=== PATIENT | male | born 1955 | race Caucasian/White ===

== ENCOUNTER 2018-08-18 05:35 | Observation (INO) ==
--- NOTE | 2018-08-18 05:43 | Emergency Department Note ---
Disposition Clinical Impression: Dizziness Chest pain Qualifiers: Chest pain type: unspecified Qualified Code(s): R07.9 - Chest pain, unspecified Disposition: Still a Patient Condition: Good Instructions: Chest Pain (ED) Referrals: Zack Brown DO [Primary Care Provider] - Forms: ED Satisfaction Letter Time of Disposition: 07:03 General Adult HPI - General Chief complaint: ED Chest Pain Stated complaint: CP/SHYANNE Time Seen by Provider: 08/18/18 05:43 Source: patient Mode of arrival: ambulatory Limitations: no limitations Nursing Notes Reviewed: Yes Vital Signs Reviewed: Yes - History of Present Illness HPI Narrative: Patient is a 63-year-old male with a past medical history of CABG presents to the emergency department for evaluation of dizziness and chest pain. Patient states that he has been dizzy over the past 24 hours. He describes the dizziness as the room spinning associated with nausea. He states his symptoms have been constant with no relief is finding it difficult to ambulate secondary to the dizziness. The chest pain he noticed first thing this morning, states is like a tightness that is a 2 out of 10 and substernal. No associated symptoms. States it does not feel intense when he had a heart attack. Denies focal neurologic deficits Pain Scale: 5 - Related Data Allergies Allergy/AdvReac Type Severity Reaction Status Date / Time No Known Allergies Allergy Verified 08/18/18 05:42 All systems ED: reviewed and negative except as stated. Review of Systems: As Per HPI Constitutional: Denies: fever, chills, weakness Cardiovascular: Reports: chest pain. Denies: palpitations, dyspnea on exertion, edema, syncope, paroxysmal nocturnal dyspnea Respiratory: Denies: dyspnea Gastrointestinal: Reports: nausea. Denies: abdominal pain, vomiting Musculoskeletal: Denies: neck pain Neurological: Reports: vertigo. Denies: headache, weakness, numbness, paresthesias, confusion, abnormal gait Past Medical History - Past Medical History Attestation: Yes The following information was validated with the patient. Medical history: Reports: hyperlipidemia, hypertension Psychiatric history: Reports: no psych history - Social History Smoking Status: Never smoker Smokeless Tobacco Status: No Alcohol use: Reports: none Drug use: Reports: none Physical Exam CONSTITUTIONAL: Well-appearing; well-nourished; A&O X 3, in no apparent distress HEAD: Normocephalic; atraumatic EYES: PERRL, no scleral icterus NOSE: The nose is normal in appearance without rhinorrhea NECK: No JVD or distended neck veins RESP: Normal chest excursion with respiration; breath sounds clear and equal bilaterally; no wheezes, rhonchi, or rales CARD: Regular rhythm, without murmurs, rub or gallop ABD: Non-distended; non-tender, soft, without rigidity, rebound or guarding,no pulsatile mass CHEST: No pain with palpation SKIN: Normal for age and race; warm and dry without diaphoresis ; no apparent lesions EXTREMITIES: Pulses are 2 plus and equal times 4 extremities, no peripheral edema or calf muscle pain NEUROLOGICAL: Patient is alert and oriented times three. Cranial nerves III- XII are intact. Patient has unilateral nystagmus to the left that is fatigable. Sensory and motor functions are intact. Strength is 5/5 for flexion and extension in all 4 extremities. Patellar DTRS are equal and intact. Finger to nose testing is equal and normal bilaterally. - General Limitations: no limitations General appearance: alert Course Vital Signs Temperature 98.2 F 08/18/18 05:39 Pulse Rate 68 08/18/18 05:39 Respiratory Rate 20 08/18/18 05:39 Blood Pressure 137/84 08/18/18 05:39 O2 Sat by Pulse Oximetry 96 08/18/18 05:39 Temperature 98.2 F 08/18/18 05:39 Pulse Rate 70 08/18/18 06:39 Respiratory Rate 20 08/18/18 06:39 Blood Pressure 91/69 08/18/18 06:39 O2 Sat by Pulse Oximetry 94 08/18/18 06:39 Oxygen Delivery Oxygen Delivery Room Air Medical Decision Making - Medical Records Medical records reviewed: Yes I reviewed the patient's medical records. - Lab Data Result diagrams: 08/18/18 06:13 08/18/18 06:13 Lab Results 08/18/18 08/18/18 Range/Units 06:13 06:13 WBC 6.6 (4.3-11.1) K/mcL RBC 5.21 (4.19-5.50) M/mcL Hgb 15.2 (12.9-16.9) g/dL Hct 46.7 (37.5-50.1) % MCV 89.6 (83.0-100.0) fL MCH 29.2 (28.0-33.3) pg MCHC 32.5 (31.6-35.5) g/dL RDW 13.3 (11.5-14.5) % Plt Count 186 (140-400) K/mcL MPV 11.8 (9.4-12.4) fL Immature Gran % 0.2 (0-4) % Seg Neutrophils % 49.9 % Lymphocytes % 37.6 % Monocytes % 8.4 % Eosinophils % 3.3 % Basophils % 0.6 % Neutrophils # 3.3 (1.6-8.9) K/mcL Lymphocytes # 2.5 (0.6-4.6) K/mcL Monocytes # 0.6 (0.0-1.3) K/mcL Eosinophils # 0.2 (0.0-0.6) K/mcL Basophils # 0.0 (0.0-0.2) K/mcL Sodium 138 (136-145) mEq/L Potassium 4.3 (3.5-5.1) mEq/L Chloride 107 (98-107) mEq/L Carbon Dioxide 20 L (23-29) mEq/L BUN 15 (8-23) mg/dL Creatinine 0.97 (0.70-1.30) mg/dL Est GFR ( Amer) > 60 (> 60) Est GFR (Non-Af Amer) > 60 (> 60) BUN/Creatinine Ratio 15 (6-26) Glucose 138 H (70-105) mg/dL Calculated Osmolality 289 (280-300) Calcium 9.0 (8.6-10.3) mg/dL Troponin I 0.03 (< 0.04) ng/mL - EKG Data EKG #1 EKG attestation: Yes I reviewed and interpreted this EKG. EKG results narrative: EKG done at 5:41 shows sinus rhythm at a rate of 67 bpm. Normal axis. Intervals within normal limits. Patient has ST depressions in lead 1 and lead aVL that appeared to be new when compared to old EKG. Patient also has nearly 1 mm elevation in III. These are new changes when compared to the EKG done on January 302014 Attestation Statement - Attestation Attestation: Dr. Beltran note: Patient was seen in conjunction with resident Dr. Ritter. Please see his charting for complete documentation. I spent [id number] time with the patient and I agree with the patient's treatment and disposition. Vague off balance and dizzy sensation constant for about the last 24 hours. No pain. No focal neurological signs or symptoms. No clear vertiginous or come positional component. No chest pain at this time. Baseline EKG is abnormal vague neck many years. Chronic dyspnea on exertion. No diaphoresis. Bypass done many years ago. Troponin and CT scan unremarkable as time. We will be admitted due to his persistent symptoms. Patient without symptoms at time of admission at 7 AM when he was accepted by the hospitalist DR Luna
[2018-08-18] MEDS ORDERED: Aspirin 81 MG TAB.CHEW PO ONE (06:00)
[2018-08-18] MEDS ORDERED: Ondansetron 4 MG/2 ML VIAL IVP ONE (06:00)
[2018-08-18] MEDS ORDERED: Nitroglycerin 0.4 MG TAB.SUBL SL ONE (06:00)
[2018-08-18 06:25] LABS: Basophils % 0.6 %; Eosinophils # 0.2 K/mcL (0.0-0.6); Eosinophils % 3.3 %; Hematocrit 46.7 % (37.5-50.1); Hemoglobin 15.2 g/dL (12.9-16.9); Immature Granulocytes % 0.2 % (0-4); Lymphocytes # 2.5 K/mcL (0.6-4.6); Lymphocytes % 37.6 %; Mean Corpuscular HGB Conc 32.5 g/dL (31.6-35.5); Mean Corpuscular Hemoglobin 29.2 pg (28.0-33.3); Mean Corpuscular Volume 89.6 fL (83.0-100.0); Mean Platelet Volume 11.8 fL (9.4-12.4); Monocytes # 0.6 K/mcL (0.0-1.3); Monocytes % 8.4 %; Neutrophils # 3.3 K/mcL (1.6-8.9); Platelet Count 186 K/mcL (140-400); Red Blood Count 5.21 M/mcL (4.19-5.50); Red Cell Distribution Width 13.3 % (11.5-14.5); Segmented Neutrophils % 49.9 %
[2018-08-18 06:46] LABS: Troponin I 0.03 ng/mL (< 0.04)
[2018-08-18 06:51] LABS: BUN/Creatinine Ratio 15 (6-26); Blood Urea Nitrogen 15 mg/dL (8-23); Carbon Dioxide 20 mEq/L (23-29); Chloride 107 mEq/L (98-107); Glucose 138 mg/dL (70-105); Osmolality,Calculated 289 (280-300); Potassium 4.3 mEq/L (3.5-5.1); Sodium 138 mEq/L (136-145); eGFR For Non-African Americans > 60 (> 60)
[2018-08-18] MEDS ORDERED: Metoclopramide 10 MG/2 ML VIAL IVP ONE (07:38)
[2018-08-18] MEDS ORDERED: Naloxone 0.4 MG/ML INJ IVP PRN (07:38)
--- NOTE | 2018-08-18 07:54 | Internal Med History&Physical ---
Date of Encounter: 08/18/18 Time of Encounter: 07:30 Internal Medicine - H&P: HPI Chief complaint: dizziness Admitted From: Home Plans for Post Hospital Care: Home History of present illness: Mr. Swain is a 63 year old male with history of hypertension, hyperlipidemia, CAD status post CABG presented to the emergency department with complaint of dizziness. He reports that his symptoms started the day before admission when he woke up in the morning getting ready to go to work. He describes his symptoms as the sensation of the room spinning around him. He has the dizziness both at rest and on ambulation. His dizziness is also associated with unsteady gait however he denies recent falls, head trauma, or similar symptoms in the past or visual/vision changes. He tried to go about his day and did nothing to alleviate his symptoms, and cannot recall aggravating factors. He went to bed and woke up 4 AM on the morning of admission as he normally does however he felt as though his dizziness had gotten worse and now was associated with nausea but denies vomiting. As his symptoms worsened he decided to come to the emergency department for further evaluation. His dizziness as stated above is both at rest and on ambulation however he reports that is worse on ambulation. Currently sitting in bed and complains of nausea in the sensation that the room is spinning around. He denies fever, chills, recent upper respiratory tract infections, sick contacts, new medication changes, similar symptoms in the past, loss of consciousness, weakness of his extremities, vision loss, headache or heat or cold intolerance. He does report that he has had on and off chest pressure like symptoms, cannot associate his symptoms to any event, currently chest pain-free, denies chest pain or palpitations while he is dizzy. Denies prolonged immobilization, shortness of breath, cough, PND or orthopnea While in the emergency department CT head was performed which was negative for any acute abnormalities. EKG showed new ST- t segment changes and he was endorsed for admission for further evaluation of dizziness and EKG changes Past Med Surg Social Fam HX - Past Medical History Medical history: hyperlipidemia, hypertension Psychiatric history: no psych history - Past Surgical History Surgical History: orthopedic, other (Right shoulder titanium plate) - Social History Smoking Status: Never smoker Smokeless Tobacco Status: No Alcohol use: none Drug use: none Internal Medicine - H&P: Meds Aspirin 325 mg PO DAILY 08/18/18 [History] Atorvastatin Calcium [Lipitor] 20 mg PO QPM 08/18/18 [History] Metoprolol [Lopressor] 12.5 mg PO BID 08/18/18 [History] Nitroglycerin [Nitrostat] 0.4 mg SL Q5M PRN 08/18/18 [History] Allergy/AdvReac Type Severity Reaction Status Date / Time No Known Allergies Allergy Verified 08/18/18 05:42 All Systems PM: review of systems was performed and is negative for pertinent findings except as documented above in the HPI. - Constitutional Vitals: Temp Pulse Resp BP Pulse Ox 98.2 F 63 15 126/82 95 08/18/18 05:39 08/18/18 07:42 08/18/18 07:42 08/18/18 07:42 08/18/18 07:42 Exam: General: Patient is alert, oriented, no acute distress, obese, very dismissive Head: atraumatic, normocephalic, Eye: normal appearance, PERRL, no scleral icterus, no conjunctival injection no nystagmus ENT: mucous membranes moist, normal external ear exam Neck: normal inspection, trachea midline, full ROM, no carotid bruits Chest: Well-healed CABG scar, normal inspection, symmetric chest rise Respiratory: Good respiratory effort. Bilateral breath sounds are clear without wheezing, crackles, or rhonchi. Cardiovascular: Regular rate and rhythm. s1 and s2 No clicks, rubs, gallops, or murmors. Abdomen: Bowel sounds present normoactive x-4 quadrants. Abdomen is soft, nondistended. no Epigastric tenderness. No guarding or rebound. No organomegaly noted, obese musculoskeletal: Spontaneously moving all extremities. no edema, no calf tenderness Skin: warm, dry, intact. Neuro: Alert and oriented x4. Sensation light touch intact. Cranial nerves 2- 12 is intact. Not aphasic, rapid hand movements intact, [id number] intact, [id number]-[id number] is intact Psych: Patient's affect is normal Internal Med - H&P Results - Labs CBC & Chem 7: 08/18/18 06:13 08/18/18 06:13 Labs: Short CBC 08/18/18 Range/Units 06:13 WBC 6.6 (4.3-11.1) K/mcL Hgb 15.2 (12.9-16.9) g/dL Hct 46.7 (37.5-50.1) % Plt Count 186 (140-400) K/mcL Neutrophils # 3.3 (1.6-8.9) K/mcL BMP 08/18/18 06:13 Sodium 138 Potassium 4.3 Chloride 107 Carbon Dioxide 20 L BUN 15 Creatinine 0.97 Glucose 138 H Calcium 9.0 Cardiac Enzymes 08/18/18 Range/Units 06:13 Troponin I 0.03 (< 0.04) ng/mL - EKG Data -: EKG Interpreted by Myself (Normal sinus rhythm, Q waves in the inferior leads, ST segment depression ) EKG shows normal: ST-T waves (ST segment depressions in 1 aVL V4 to V6) - Impressions ITS Impressions Chest X-Ray 08/18/18 05:43 IMPRESSION: Stable chest without acute process. D/ / Wandy Osman MD / Wandy Osman MD Interpreting Provider: Wandy Osman MD Head CT 08/18/18 06:03 IMPRESSION: No acute intracranial abnormality. D/ / Wandy Osman MD / Wandy Osman MD Interpreting Provider: Wandy Osman MD - Assessment and plan (1) Vertigo Current Visit: Yes Status: Acute Assessment and plan: Both on at rest and on ambulation, associated with nausea ?cardiac induced rule out posterior fossa stroke Cardiac to monitoring First troponin negative will follow in 6 hours along with EKG MRI headdiscussed plate in the right shoulder with quality assurance lab technician who said it is safe to have MRI done, patient had an MRI had performed in 2016 Meclizine 12.5 when necessary for dizziness Zofran every 8 hours when necessary for nausea Carotid Dopplers Echocardiogram Gentle hydration watch for overload B12, TSH, A1c, lipid panel along with a.m. labs U tox Neurology consulted will follow recommendations Neuro checks CT head on 08/18 IMPRESSION: No acute intracranial abnormality. (2) Chest pain Current Visit: Yes Status: Acute Assessment and plan: On and off chest pain both on ambulation and at rest Does have history of CABG New EKG changes with ST segment depressions and T-wave inversions Cardiology was consultedspoke to Dr. Humphreys will evaluate the patient and provide further recommendations Was loaded with aspirin 325 in the ED Follow troponins and EKG every 6 hours Cardiac monitoring Echocardiogram We will keep nothing by mouth for now for possible cardiac intervention Gentle hydration , watch for overload Continue home medications if not contraindicated CXR:IMPRESSION: Stable chest without acute process. (3) Hypertension Current Visit: Yes Status: Acute Assessment and plan: Continue home medications if not contraindicated Qualifiers: Hypertension type: essential hypertension Qualified Code(s): I10 - Essential (primary) hypertension (4) Hyperlipidemia Current Visit: Yes Status: Acute Assessment and plan: Continue home medications if not contraindicated Lipid panel in the morning Qualifiers: Hyperlipidemia type: unspecified Qualified Code(s): E78.5 - Hyperlipidemia, unspecified (5) Obesity (BMI 30.0-34.9) Current Visit: Yes Status: Acute Assessment and plan: Was counseled Consider nutrition consult BMI is 31.2 (6) DVT prophylaxis Current Visit: Yes Status: Acute Assessment and plan: Heparin subcutaneous - Time Spent With Patient Total time spent is greater than 50% in coordination of care (as documented) at patient's floor/unit and/or counseling patient:
[2018-08-18] MEDS ORDERED: Nitroglycerin 0.4 MG TAB.SUBL SL PRN (08:05)
--- NOTE | 2018-08-18 09:51 | Neurology - Consult Note ---
Addendum entered and electronically signed by Horacio Hook MD 08/18/18 16:26: Patient seen and examined in the presence of Dr. Shane Santos. I agree with his history taking, physical examination, assessment and plan. In summery, this is a 63 year old man with PMH significant for chronic tinnitus, (likely related to exposure to loud environment such as racing), CAD, s/p CABG who developed acute onset of vertigious feeling, nausea this morning aggravated by head movements. He has horizontal nystagmus, when gazing to the left side with fast face to the left side. MRI of brain showed no acute infarct. No other cranial nerve deficits. No evidence of nerve palsy involving the eye movements. Agree that this is likely peripheral vertigo, differential diagnosis would include first bout of Meniere, BPPV, or vestibular neuronitis. Suggests ENT evaluation, hearing testing and VNG as directed by ENT. Total time spend on this case is approximately 50 minutes, more than 50% was d irected to direct patient care. Original Note: Date of Encounter: 08/18/18 Time of Encounter: 13:35 Assessment and Plan (1) Vertigo Current Visit: Yes Status: Acute Neurological exam non-focal and non-lateralizing except for leftward nystagmus on rest exacerbated by any head movement Patient has intact finger to nose, rapid alternating movements, heel to harris bilaterally. MRI of the head is negative. Ear exam shows decrease light reflex of the left tympanic membrane with fluid. Patient has had decreased hearing as well as tenderness for last 5 years. Likely this is peripheral vertigo. recommend ENT consult, VNG testing as well as hearing test. History of Present Illness Chief complaint: Dizziness HPI: Mr. Swain is a 63 year old male presented with chief complaint of dizziness. Patient reported that after he woke up yesterday morning he felt lightheaded t hroughout the day even as he went to work. Then this morning when patient woke up he had the sensation of room spinning around him. This affected his ability to ambulate as he had unsteady gait but denied falling or trauma. He has never had 2 sets of symptoms before. He also developed nausea but did not have any vomiting. He denied double vision, head pain, ear pain, ear fullness. He reports she has had severe tinnitus for the last 5 years and even has had decrease in his hearing. This has not been worked up. He denies any slurred speech, weakness, numbness, tingling, dysphagia. He reports continuous nausea and room spinning sensation during my evaluation. Past Med Surg Social Fam HX - Past Medical History Medical history: hyperlipidemia, hypertension Psychiatric history: no psych history - Past Surgical History Surgical History: orthopedic, other (Right shoulder titanium plate) - Social History Smoking Status: Never smoker Smokeless Tobacco Status: No Alcohol use: none Drug use: none - Family History Mother Age: 83 Living Status: Still Living Hx Family Cardiac Disorders: Yes ([place]) Medications and Allergies Aspirin 325 mg PO DAILY 08/18/18 [History] Atorvastatin Calcium [Lipitor] 20 mg PO QPM 08/18/18 [History] Metoprolol [Lopressor] 12.5 mg PO BID 08/18/18 [History] Nitroglycerin [Nitrostat] 0.4 mg SL Q5M PRN 08/18/18 [History] Allergy/AdvReac Type Severity Reaction Status Date / Time No Known Allergies Allergy Verified 08/18/18 05:42 All Systems: The remainder of the systems were reviewed and are negative Review of Systems: Constitutional: Denies fever, chills HEENT: Denies headache, trauma, blurry vision, eye discharge, ear pain, ear discharge neck pain, sore throat, rhinorrhea Heart: Denies chest pain palpitations, LE edema Lungs: Denies shortness of breath cough Abdomen: Denies abdominal pain nausea vomiting diarrhea MSK: Denies back pain, falls, joint pain Kidney: Denies dysuria, hematuria Skin: Denies rash, ulcers Neuro: as per HPI Psych: denies axniety, depression Physical Examination - Vital Signs Vital Signs: Initial Vital Signs Temp Pulse Resp BP Pulse Ox 98.2 F 68 20 137/84 96 08/18/18 05:39 08/18/18 05:39 08/18/18 05:39 08/18/18 05:39 08/18/18 05:39 - Exam Exam: General: pleasant, without distress HEENT: Head atraumatic, normocephalic, EOMI, PERRL, absent ear discharge or trauma but left tympanic membrane has poor light reflex, Moist Mucous Membranes, uvula midline Neck: nontender to palpation, absent lymphadenopathy, Cardiovascualr: Regular rate and rhythm with no murmur, absent gallops or rubs, absent pedal edema, radial pulses 2 out of 4 Lungs: Clear to auscultation bilaterally, not in respiratory distress Abdomen: Soft nontender, nondistended positive bowel sounds, absent hepatomegaly Skin: warm and dry, absent rash, absent open wounds and nodules MSK: absent clubbing, cyanosis, joints without swelling Psych: good insight and judgment - Neurologic Sensorimotor examination: intact Detailed motor examination: full strength in all major muscle groups Motor examination - right side: 5/5: deltoids, biceps, triceps, wrist flexion, wrist extension, [employer], hip flexors, tibialis Anterior, quadriceps, toe extension (EHL), plantarflexion Motor examination - left side: 5/5: deltoids, biceps, triceps, wrist flexion, wrist extension, hip flexors, [employer], quadriceps, tibialis Anterior, toe extension (EHL), plantarflexion Detailed sensory examination: intact, light touch Reflex and gait examination: other (gait not tested as patient has vertigo) Reflexes: Biceps: 2+, Triceps: 2+, Brachioradialis: 2+, Patella: 2+, Achilles: 2+ Mental Status Examination: awake, alert, oriented to person, oriented to place, oriented to time, follows commands appropriately, answers questions appropriately, no agnosia, no aphasia, no aproxia Cranial nerve examination: PERRL, EOMI, visual lugo intact, sensory to face intact, mastication intact, no facial asymmetry is present, no dysarthria, hearing is intact symmetrically, soft palate elevates bilaterally upon phonation, flexes SCM and trapezius muscles symmetrically with full power, tongue protrudes midline, no atrophy or facial fasiculations present Cerebellar examination: no dysmetria, performs finger to nose and heel to harris symmetrically without ataxia, no gait ataxia, no truncal ataxia, no difficulty with rapid alternating movements Ocular dysmotility: gaze-evoked nystagmus Results - Laboratory Findings CBC and BMP: 08/18/18 06:13 08/18/18 06:13 Abnormal lab findings: Abnormal lab results Carbon Dioxide 20 mEq/L (23-29) L 08/18/18 06:13 Glucose 138 mg/dL (70-105) H 08/18/18 06:13 Consult Discharge Plan - Plan Referrals: Zack Brown DO [Primary Care Provider] -
[2018-08-18] MEDS: 0.9 % Sodium Chloride 1,000 ML IVC SCH (12:06)
--- NOTE | 2018-08-18 12:46 | Cardiology Consult Note ---
Date of Encounter: 08/18/18 Time of Encounter: 12:44 Assessment and Plan (1) CAD in [place] artery Current Visit: Yes Status: Acute [place] CAD, prior CABG in 2014. Overall, patient has done very well since bypass. Denies chest pain or discomfort. TTE pending. If no significant findings on TTE, then no further inpatient cardiac testing appears to be necessary at this time. Recommend continue aspirin, statin, and beta huong therapy for secondary prevention. (2) Vertigo Current Visit: Yes Status: Acute Patient describes symptoms very suspicious for vertigo. Your IM/neurology Discussion w patient/family: The assessment and plan as outlined above was discussed with the patient and/or family members who expressed understanding and agreement. All questions were answered. Thank you for involving us in the care of your patient. Please call with any questions. History of Present Illness Consult date: 08/18/18 Requesting physician: Tatiana Rosario Consult reason: Dizziness Chief complaint: Dizziness History of present illness: Mr. Swain is a 63 year old male with a history of CAD, prior CABG in 2014. Presents with a primary complaint of a room spinning sensation at rest, but worsens when he turns his head from side to side. Upon my evaluation, denies chest pain or discomfort. Relatively active lifestyle, denies exertional symptoms. Serial troponin measurements negative. No acute ECG changes. MRI head unremarkable per reports. Past Med Surg Social Fam HX - Past Medical History Medical history: hyperlipidemia, hypertension Psychiatric history: no psych history - Past Surgical History Surgical History: coronary bypass (CABG), orthopedic, other - Social History Smoking Status: Never smoker Smokeless Tobacco Status: No Alcohol use: none Drug use: none - Family History Mother Age: 83 Living Status: Still Living Hx Family Cardiac Disorders: Yes ([place]) Medications and Allergies Aspirin 325 mg PO DAILY 08/18/18 [History] Atorvastatin Calcium [Lipitor] 20 mg PO QPM 08/18/18 [History] Metoprolol [Lopressor] 12.5 mg PO BID 08/18/18 [History] Nitroglycerin [Nitrostat] 0.4 mg SL Q5M PRN 08/18/18 [History] Allergy/AdvReac Type Severity Reaction Status Date / Time No Known Allergies Allergy Verified 08/18/18 05:42 All Systems Review: The remainder of the systems were reviewed and are negative - Cardiovascular Cardiovascular: as per HPI - Neurological Neurological: dizziness Physical Examination General: Conversant, No Apparent Distress HEENT: Atraumatic, Normocephaly, Mucus Membranes Moist Neck: No JVD, Normal carotid pulses Cardiac: Reg Rate and Rhythm, Normal S1 and S2, No Murmur Lungs: Normal Breath Sounds, No Wheeze, Rales, Rhonchi Neuro: Alert and responsive, No focal deficits noted Abdomen: Soft, Non-Tender Skin: No rashes noted on visualized skin Musculoskeletal: No Chest Wall Tenderness Extremities: No Clubbing, No Cyanosis, No Edema Results 08/18/18 06:13 08/18/18 06:13 Lab Results 08/18/18 08/18/18 06:13 06:13 WBC 6.6 Hgb 15.2 Hct 46.7 Plt Count 186 Sodium 138 Potassium 4.3 Chloride 107 Carbon Dioxide 20 L BUN 15 Creatinine 0.97 Glucose 138 H Calcium 9.0 Troponin I 0.03 - Imaging and Cardiology Echo: pending - EKG Interpretation EKG results cardiology: personally reviewed Consult Discharge Plan - Plan Referrals: Zack Brown DO [Primary Care Provider] -
--- NOTE | 2018-08-18 14:33 | Event Note ---
Date of Encounter: 08/18/18 Time of Encounter: 14:31 TTE results reviewed, LVEF normal. No segmental wall motion abnormalities. Serial troponins negative. Presentation is not consistent with ACS. No further inpatient cardiology testing appears to be necessary at this time. Your IM management regarding dizziness, possible vertigo. Cardiology will sign off. Thanks, Valdemar Humphreys
[2018-08-18] MEDS: *HR* Heparin 5,000 UNIT/ML VIAL SQ SCH ×2 (15:28→20:03)
--- NOTE | 2018-08-18 17:09 | Electrocardiograph Report ---
[address] [place] [address] Test Date: 2018-08-18 Pat Name: Jessa Swain Department: EXAM1 Room: 3B63 Gender: M Stage Set Designer: : 1955 Requested By: Nadir Ritter Order Number: [id number] Reading MD: Ana Mack Measurements Intervals [place] Rate: 67 P: 41 IL: 151 QRS: -20 QRSD: 82 T: 163 QT: 426 QTc: 450 Interpretive Statements Sinus rhythm Inferior infarct, old Lateral leads are also involved Electronically Signed On 08-18-2018 17:07:51 EST by Ana Mack
[2018-08-18 17:28] LABS: Amphetamine Screen,Urine Negative ng/mL (Cutoff=1000); Barbiturate Screen,Urine Negative ng/mL (Cutoff=200); Benzodiazepines Screen,Urine Negative ng/mL (Cutoff=200); Cannabinoid Screen,Urine Negative ng/mL (Cutoff = 50); Cocaine Screen,Urine Negative ng/mL (Cutoff= 300); Opiate Screen,Urine Negative ng/mL (Cutoff=300); Phencyclidine Screen,Urine Negative ng/mL (Cutoff=25)
[2018-08-18 17:37] LABS: Bilirubin,Urine Negative (Negative); Blood,Urine Negative (Negative); Clarity,Urine Clear (Clear); Color,Urine Yellow (Yellow); Glucose,Urine (UA) Normal (Normal); Ketones,Urine Negative (Negative); Leukocyte Esterase,Urine Negative (Negative); Nitrite,Urine Negative (Negative); Protein,Urine Negative (Neg-Trace); Specific Gravity,Urine 1.023 (1.010-1.025); Urobilinogen,Urine Normal (Normal)
[2018-08-18] MEDS: Ondansetron 4 MG/2 ML VIAL IVP PRN (17:51)
[2018-08-19] MEDS: 0.9 % Sodium Chloride 1,000 ML IVC SCH (03:18)
[2018-08-19] MEDS: *HR* Heparin 5,000 UNIT/ML VIAL SQ SCH (05:26)
[2018-08-19 06:07] LABS: Basophils % 0.6 %; Eosinophils # 0.2 K/mcL (0.0-0.6); Eosinophils % 2.4 %; Hematocrit 46.7 % (37.5-50.1); Hemoglobin 15.1 g/dL (12.9-16.9); Immature Granulocytes % 0.3 % (0-4); Lymphocytes # 2.7 K/mcL (0.6-4.6); Mean Corpuscular HGB Conc 32.3 g/dL (31.6-35.5); Mean Corpuscular Hemoglobin 29.8 pg (28.0-33.3); Mean Corpuscular Volume 92.3 fL (83.0-100.0); Monocytes # 0.5 K/mcL (0.0-1.3); Monocytes % 7.2 %; Neutrophils # 3.7 K/mcL (1.6-8.9); Platelet Count 195 K/mcL (140-400); Red Blood Count 5.06 M/mcL (4.19-5.50); Red Cell Distribution Width 13.7 % (11.5-14.5); Segmented Neutrophils % 51.5 %
[2018-08-19 06:26] LABS: Alanine Aminotransferase 24 Units/L (7-52); Albumin 3.9 g/dL (3.5-5.7); Albumin/Globulin Ratio 1.9 (1.1-2.2); Alkaline Phosphatase 47 Units/L (34-104); Aspartate Amino Transferase 16 Units/L (13-39); BUN/Creatinine Ratio 14 (6-26); Bilirubin,Total 0.8 mg/dL (0.3-1.0); Blood Urea Nitrogen 14 mg/dL (8-23); Calcium 8.9 mg/dL (8.6-10.3); Carbon Dioxide 25 mEq/L (23-29); Chloride 109 mEq/L (98-107); Chol/HDL Ratio 3.2 (0-4.9); Cholesterol 136 mg/dL (< 200); Globulin 2.1 g/dL (2.4-3.5); Glucose 120 mg/dL (70-105); HDL Cholesterol 43 mg/dL (40-59); LDL Cholesterol,Calculated 52 mg/dL (0-99); Magnesium 2.1 mg/dL (1.6-2.6); Osmolality,Calculated 292 (280-300); Phosphorous 2.5 mg/dL (2.7-4.5); Potassium 4.2 mEq/L (3.5-5.1); Sodium 140 mEq/L (136-145); Triglycerides 203 mg/dL (< 150); eGFR For Non-African Americans > 60 (> 60)
[2018-08-19 08:29] LABS: Estimated Average Glucose 134 mg/dl; Hemoglobin A1C 6.3 %
[2018-08-19] MEDS ORDERED: Aspirin 325 MG TABLET PO SCH (09:00)
[2018-08-19] MEDS: Ondansetron 4 MG/2 ML VIAL IVP PRN (09:48)
[2018-08-19 10:54] VITALS: BP 135/87
--- NOTE | 2018-08-19 12:01 | ENT - Consult Note ---
<Kaylie Denney - Last Filed: 08/19/18 13:22> Date of Encounter: 08/19/18 Time of Encounter: 12:11 Assessment and Plan (1) Dizziness Status: Acute Patient seen and examined today at bedside. MRI and CT scan reviewed and found to be negative. Maribel-Hallpike completed. Patient with left horizontal nystagmus noted and weak postive to the left with maribel-hallpike testing. The differential diagnosis for dizziness was discussed with the patient including: BPPV, Meniere''s disease, vestibular neuronitis, viral labyrinthitis, vestibular migraine, and other common causes. Discussed with the patient that dizziness can be multifactorial. Recommend patient follow up outpatient in ENT office for audiogram for reported bilateral tinnitus and VNG testing to further assess and rule out any peripheral weakness. Recommend patient discontinue meclizine prior to VNG testing. Recommend patient to be discharged with medication for nausea symptoms. All questions answered. History of Present Illness Consult date: 08/19/18 Reason for ENT Consult: vertigo Requesting physician: Cynthia Levy History of present illness: Patient is a 63 year old male with history of hypertension, hyperlipidemia, CAD status post CABG who presented to the emergency department with complaint of dizziness and chest pain on 08/18/18 and was subsequently admitted. He reports that his symptoms began Friday, when he woke up in the morning getting ready to go to work. Patient describes his sensation as room spinning with an unbalanced sensation, with associated nausea. He reports his symptoms are continuous with movement but will subside if he remains still. Denies exacerbation with head turning either direction. He reports symptoms occur both at rest and on ambulation. He admits that symptoms occur while lying flat but no exacerbation with rolling to either side. No recent URI. Denies any hearing loss or aural fullness. Denies any history of migraines or headaches. His dizziness is also associated with unsteady gait however he denies recent falls, head trauma, or similar symptoms in the past or visual/vision changes. Patient also admits to bilateral tinnitus which he reports is chronic, with a history of recreational loud noise exposure. Past Med Surg Social Fam HX - Past Medical History Medical history: hyperlipidemia, hypertension Psychiatric history: no psych history - Past Surgical History Surgical History: orthopedic, other (Right shoulder titanium plate) - Social History Smoking Status: Never smoker Smokeless Tobacco Status: No Alcohol use: none Drug use: none - Family History Mother Age: 83 Living Status: Still Living Hx Family Cardiac Disorders: Yes (HI) Medications and Allergies RX: Aspirin 325 mg PO DAILY 08/18/18 [History] RX: Atorvastatin Calcium [Lipitor] 20 mg PO QPM 08/18/18 [History] RX: Metoprolol [Lopressor] 12.5 mg PO BID 08/18/18 [History] RX: Nitroglycerin [Nitrostat] 0.4 mg SL Q5M PRN 08/18/18 [History] Ondansetron ODT [Zofran ODT] 4 mg SL Q6HR PRN #30 tab.rapdis 08/19/18 [Rx] Allergy/AdvReac Type Severity Reaction Status Date / Time No Known Allergies Allergy Verified 08/18/18 05:42 ENT - ROS - EENT Nose, mouth and throat: dizziness ENT Exam Initial Vital Signs Temp Pulse Resp BP Pulse Ox 98.2 F 68 20 137/84 96 08/18/18 05:39 08/18/18 05:39 08/18/18 05:39 08/18/18 05:39 08/18/18 05:39 - General physical appearance well developed, well nourished, no distress - Eyes other (patient with horizontal left nystagmus), PERRL, normal ocular movement - ENT CN 2-12 grossly intact, Other (Ears: Bilateral EACs clear. TMs normal bilaterally, without perforation, retraction, ejection, bulging, or middle ear effusion noted. Nose: Septum grossly midline, inferior turbinates normal bilaterally. Oral: Teeth in good repair. Mucosa moist. Tongue midline. Uvula midline. No oral lesions noted. ) - Neck trachea midline, no lymphadectomy - Respiratory normal expansion, normal respiratory effort - Neurologic CN 2-12 grossly intact - Psychiatric oriented to time, oriented to person, oriented to place Exam Initial Vital Signs Temp Pulse Resp BP Pulse Ox 98.2 F 68 20 137/84 96 08/18/18 05:39 08/18/18 05:39 08/18/18 05:39 08/18/18 05:39 08/18/18 05:39 Results - Labs 08/19/18 05:24 08/19/18 05:24 Abnormal lab results Chloride 109 mEq/L (98-107) H 08/19/18 05:24 Glucose 120 mg/dL (70-105) H 08/19/18 05:24 Hemoglobin A1c 6.3 % (-5.6) H 08/19/18 05:24 Phosphorus 2.5 mg/dL (2.7-4.5) L 08/19/18 05:24 Serum Total Protein 6.0 g/dL (6.4-8.9) L 08/19/18 05:24 Globulin 2.1 g/dL (2.4-3.5) L 08/19/18 05:24 Triglycerides 203 mg/dL (< 150) H 08/19/18 05:24 VLDL Cholesterol, Calc 41 mg/dL (< 31) H 08/19/18 05:24 Diabetes panel 08/19/18 08/19/18 Range/Units 05:24 05:24 Sodium 140 (136-145) mEq/L Potassium 4.2 (3.5-5.1) mEq/L Chloride 109 H (98-107) mEq/L Carbon Dioxide 25 (23-29) mEq/L BUN 14 (8-23) mg/dL Creatinine 1.02 (0.70-1.30) mg/dL Glucose 120 H (70-105) mg/dL Hemoglobin A1c 6.3 H ( - 5.6) % Calcium 8.9 (8.6-10.3) mg/dL AST 16 (13-39) Units/L ALT 24 (7-52) Units/L Alkaline Phosphatase 47 (34-104) Units/L Albumin 3.9 (3.5-5.7) g/dL Triglycerides 203 H (< 150) mg/dL HDL Cholesterol 43 (40-59) mg/dL Thyroid panel 08/19/18 Range/Units 05:24 TSH 1.599 (0.340-5.600) mcIU/mL Calcium panel 08/19/18 Range/Units 05:24 Calcium 8.9 (8.6-10.3) mg/dL Phosphorus 2.5 L (2.7-4.5) mg/dL Albumin 3.9 (3.5-5.7) g/dL Pituitary panel 08/19/18 08/19/18 Range/Units 05:24 05:24 Sodium 140 (136-145) mEq/L Potassium 4.2 (3.5-5.1) mEq/L Chloride 109 H (98-107) mEq/L Carbon Dioxide 25 (23-29) mEq/L BUN 14 (8-23) mg/dL Creatinine 1.02 (0.70-1.30) mg/dL Glucose 120 H (70-105) mg/dL Calcium 8.9 (8.6-10.3) mg/dL TSH 1.599 (0.340-5.600) mcIU/mL Adrenal panel 08/19/18 Range/Units 05:24 Sodium 140 (136-145) mEq/L Potassium 4.2 (3.5-5.1) mEq/L Chloride 109 H (98-107) mEq/L Carbon Dioxide 25 (23-29) mEq/L BUN 14 (8-23) mg/dL Creatinine 1.02 (0.70-1.30) mg/dL Glucose 120 H (70-105) mg/dL Calcium 8.9 (8.6-10.3) mg/dL Total Bilirubin 0.8 (0.3-1.0) mg/dL AST 16 (13-39) Units/L ALT 24 (7-52) Units/L Alkaline Phosphatase 47 (34-104) Units/L Albumin 3.9 (3.5-5.7) g/dL All other labs normal. Consult Discharge Plan - Plan Instructions: Chest Pain (DC) Referrals: Kaylie Denney CNP [Advanced Practice Nurse] - 09/17/18 8:00 am (Follow up outpatient in ENT office for audiogram for reported bilateral tinnitus and VNG testing to further assess and rule out any peripheral weakness. Report to office at 8:00 for testing. Will see aKylie Denney following testing.) Zack Brown DO [Primary Care Provider] - 08/26/18 2:15 pm Prescriptions: Ondansetron ODT [Zofran ODT] 4 mg SL Q6HR PRN #30 tab.rapdis PRN Reason: Nausea And Vomiting <Benji Mack - Last Filed: 08/19/18 16:56> Date of Encounter: 08/19/18 Assessment and Plan (1) Dizziness Status: Acute ENT Exam Initial Vital Signs Temp Pulse Resp BP Pulse Ox 98.2 F 68 20 137/84 96 08/18/18 05:39 08/18/18 05:39 08/18/18 05:39 08/18/18 05:39 08/18/18 05:39 Exam Initial Vital Signs Temp Pulse Resp BP Pulse Ox 98.2 F 68 20 137/84 96 08/18/18 05:39 08/18/18 05:39 08/18/18 05:39 08/18/18 05:39 08/18/18 05:39 Results - Labs 08/19/18 05:24 08/19/18 05:24 Abnormal lab results Chloride 109 mEq/L (98-107) H 08/19/18 05:24 Glucose 120 mg/dL (70-105) H 08/19/18 05:24 Hemoglobin A1c 6.3 % (-5.6) H 08/19/18 05:24 Phosphorus 2.5 mg/dL (2.7-4.5) L 08/19/18 05:24 Serum Total Protein 6.0 g/dL (6.4-8.9) L 08/19/18 05:24 Globulin 2.1 g/dL (2.4-3.5) L 08/19/18 05:24 Triglycerides 203 mg/dL (< 150) H 08/19/18 05:24 VLDL Cholesterol, Calc 41 mg/dL (< 31) H 08/19/18 05:24 Diabetes panel 08/19/18 08/19/18 Range/Units 05:24 05:24 Sodium 140 (136-145) mEq/L Potassium 4.2 (3.5-5.1) mEq/L Chloride 109 H (98-107) mEq/L Carbon Dioxide 25 (23-29) mEq/L BUN 14 (8-23) mg/dL Creatinine 1.02 (0.70-1.30) mg/dL Glucose 120 H (70-105) mg/dL Hemoglobin A1c 6.3 H ( - 5.6) % Calcium 8.9 (8.6-10.3) mg/dL AST 16 (13-39) Units/L ALT 24 (7-52) Units/L Alkaline Phosphatase 47 (34-104) Units/L Albumin 3.9 (3.5-5.7) g/dL Triglycerides 203 H (< 150) mg/dL HDL Cholesterol 43 (40-59) mg/dL Thyroid panel 08/19/18 Range/Units 05:24 TSH 1.599 (0.340-5.600) mcIU/mL Calcium panel 08/19/18 Range/Units 05:24 Calcium 8.9 (8.6-10.3) mg/dL Phosphorus 2.5 L (2.7-4.5) mg/dL Albumin 3.9 (3.5-5.7) g/dL Pituitary panel 08/19/18 08/19/18 Range/Units 05:24 05:24 Sodium 140 (136-145) mEq/L Potassium 4.2 (3.5-5.1) mEq/L Chloride 109 H (98-107) mEq/L Carbon Dioxide 25 (23-29) mEq/L BUN 14 (8-23) mg/dL Creatinine 1.02 (0.70-1.30) mg/dL Glucose 120 H (70-105) mg/dL Calcium 8.9 (8.6-10.3) mg/dL TSH 1.599 (0.340-5.600) mcIU/mL Adrenal panel 08/19/18 Range/Units 05:24 Sodium 140 (136-145) mEq/L Potassium 4.2 (3.5-5.1) mEq/L Chloride 109 H (98-107) mEq/L Carbon Dioxide 25 (23-29) mEq/L BUN 14 (8-23) mg/dL Creatinine 1.02 (0.70-1.30) mg/dL Glucose 120 H (70-105) mg/dL Calcium 8.9 (8.6-10.3) mg/dL Total Bilirubin 0.8 (0.3-1.0) mg/dL AST 16 (13-39) Units/L ALT 24 (7-52) Units/L Alkaline Phosphatase 47 (34-104) Units/L Albumin 3.9 (3.5-5.7) g/dL All other labs normal. - Attending Attestation I independently saw and evaluated this patient. This is a 63-year-old gentleman who presented to the clinic with approximately 4 day history of severe sensation of disequilibrium that at times has a component of spinning sensation. The patient states that this has been constant does not wax or wane in severity since onset. The patient states that he has no associated aural fullness, tinnitus, or hearing loss in either ear. He has no symptoms of spinning when rolling over in bed. He denies any preceding upper respiratory tract infection prior to the onset of his dizziness. A thorough workup including cardiac workup as well as neurologic workup including MRI was negative. Patient has trial meclizine but this did not relieve his symptoms of disequilibrium and nausea. On physical exam, the Maribel-Hallpike to the left is weakly positive. For the plan addendum discussed with the patient that his dizziness does not fit into the typical differential diagnosis for peripheral dizziness. I discussed with the patient that I would like to obtain an audiogram as well as AB in G to further assess for any peripheral vestibular weakness and to develop a further plan after those results are available.
--- NOTE | 2018-08-19 12:23 | Neurology Progress Note ---
Date of Encounter: 08/19/18 Time of Encounter: 12:20 Assessment and Plan (1) Vertigo Status: Acute As mentioned previously likely the patient developed peripheral vertigo, first episode, symptoms lasted more than two days aggravated by movements with horizontal nystagmus with fast phase to the left side. Differential diagnosis would include BPPV, vestibular neuronitis or first episode of Meniere syndrome. He is seen by ENT and scheduled for VNG and vestibular therapy. Other than that treatment is largely symptomatic. Okay to discharge home from neurology perspective Subjective Principal diagnosis: Vestibular dysfunction Interval history: Patient is seen and examined. Today he lays in bed comfortably. No nausea at present time. when moving his head still gets dizziness. but when keep still he feels fine. Still unsteady when tried walk earlier this morning. Do not feel that he is improving much but does not have significant discomforts laying in bed. Await to be seen by ENT. Physical examination still showing nystagmus on horizontal gaze to the left side fast phase to the left side. Is on meclizine 12.5mg bid Objective - Constitutional Vitals: Temp Pulse Resp BP Pulse Ox 98.3 F 82 16 135/87 95 08/19/18 10:50 08/19/18 10:50 08/19/18 10:50 08/19/18 10:50 08/19/18 10:50 - Neurological Exam Sensorimotor examination: Present: intact Motor Examination: Present: full strength in all major muscle groups Motor examination - right side: 5/5: deltoids, biceps, triceps, wrist flexion, wrist extension, home economics teacher, hip flexors, tibialis Anterior, quadriceps, toe extension (EHL), plantarflexion Motor examination - left side: 5/5: deltoids, biceps, triceps, wrist flexion, wrist extension, hip flexors, home economics teacher, quadriceps, tibialis Anterior, toe extension (EHL), plantarflexion Sensation intact: Present: intact, light touch Reflex and gait examination: other (gait not tested as patient has vertigo) Reflexes: Biceps: 1+, Triceps: 1+, Brachioradialis: 1+, Patella: 1+, Achilles: 1+ Mental Status Examination: Present: awake, alert, oriented to person, oriented to place, oriented to time, follows commands appropriately, answers questions appropriately, no agnosia, no aphasia, no aproxia Cranial nerve examination: Present: PERRL, EOMI (Eye movements full. when gazing to the left side, develops fast phase nystagmus to the left side, sustained), visual lugo intact, corneal reflexes brisk symmetrically, sensory to face intact, mastication intact, no facial asymmetry is present, no dysarthria, hearing is intact symmetrically, soft palate elevates bilaterally upon phonati on, gag reflex intact, flexes SCM and trapezius muscles symmetrically with full power, tongue protrudes midline, no atrophy or facial fasiculations present Cerebellar examination: Present: no dysmetria, performs finger to nose and heel to harris symmetrically without ataxia, no gait ataxia, no truncal ataxia, no difficulty with rapid alternating movements Ocular dysmotility: gaze-evoked nystagmus Results - Laboratory Findings CBC and BMP: 08/19/18 05:24 08/19/18 05:24 Abnormal lab findings: Abnormal lab results Chloride 109 mEq/L (98-107) H 08/19/18 05:24 Glucose 120 mg/dL (70-105) H 08/19/18 05:24 Hemoglobin A1c 6.3 % (-5.6) H 08/19/18 05:24 Phosphorus 2.5 mg/dL (2.7-4.5) L 08/19/18 05:24 Serum Total Protein 6.0 g/dL (6.4-8.9) L 08/19/18 05:24 Globulin 2.1 g/dL (2.4-3.5) L 08/19/18 05:24 Triglycerides 203 mg/dL (< 150) H 08/19/18 05:24 VLDL Cholesterol, Calc 41 mg/dL (< 31) H 08/19/18 05:24 Consult Discharge Plan - Plan Instructions: Chest Pain (DC) Referrals: Kaylie Denney FINISH CARPENTER [Advanced Practice Nurse] - 09/17/18 8:00 am (Follow up outpatient in ENT office for audiogram for reported bilateral tinnitus and VNG testing to further assess and rule out any peripheral weakness. Report to office at 8:00 for testing. Will see Kaylie Denney following testing.) Zack Brown DO [Primary Care Provider] - 08/26/18 2:15 pm Prescriptions: Ondansetron ODT [Zofran ODT] 4 mg SL Q6HR PRN #30 tab.rapdis PRN Reason: Nausea And Vomiting
--- NOTE | 2018-08-19 15:04 | Discharge Summary ---
- NOTES TO OUTPATIENT PROVIDER Notes to Outpatient Provider: Follow up with ENT office for audiogram and VNG - once cleared by ENT possible outpatient PT Orders not resulted at time of discharge: Pending orders 08/18/18 12:00 ECG 12 lead ECG [ECG] Routine Date of Encounter: 08/19/18 Time of Encounter: 15:02 - Discharge Diagnosis (1) Vertigo Priority: Primary Status: Acute Hospital course: Mr. Swain is a 63 year old male past medical history of hypertension hyperlipidemia CAD status post CABG presented to the emergency department with complaints of dizziness. Describes the symptoms as sensation of room spinning around him. Dizziness occurs at rest and during ambulation he has an unsteady gait denies any recent fall or head trauma. CT of head negative for any acute abnormalities EKG with no acute changes. Lab work is unremarkable MRI was completed unremarkable carotid duplex normal TTE LVEF normal no segmental wall motion abnormalities patient was seen by cardiology with no further cardiac testing necessary at this time continue with aspirin and statin beta huong. Was seen by neurology suspect peripheral vertigo recommending ENT evaluation. ENT evaluate patient recommending outpatient follow-up for audiogram and ENT testing recommending discontinuing meclizine. Patient was also evaluate by physical therapy with no needs identified at this time. Patient denies any chest pain or shortness of breath he is anxious to be discharged. I did review follow-up appointments with patient as well as provided prescription for Zofran ODT He is hemodynamically stable this time and is ready for discharge Discharge discussed with: patient - Time Spent with Patient Total time spent providing and/or coordinating discharge services: - Discharge Medications Prescriptions: Ondansetron ODT [Zofran ODT] 4 mg SL Q6HR PRN #30 tab.rapdis PRN Reason: Nausea And Vomiting Home Medications: Aspirin 325 mg PO DAILY 08/18/18 [History] Atorvastatin Calcium [Lipitor] 20 mg PO QPM 08/18/18 [History] Metoprolol [Lopressor] 12.5 mg PO BID 08/18/18 [History] Nitroglycerin [Nitrostat] 0.4 mg SL Q5M PRN 08/18/18 [History] Ondansetron ODT [Zofran ODT] 4 mg SL Q6HR PRN #30 tab.rapdis 08/19/18 [Rx] Allergies/Adverse Reactions: Allergy/AdvReac Type Severity Reaction Status Date / Time No Known Allergies Allergy Verified 08/18/18 05:42 Date of admission: 08/18/18 07:53 Primary care physician: Bernardo Brown DO Consults: 08/18/18 07:40 Consult to Cardiology [CONS] Stat Comment: Consulting Provider: Cardiology [place] Reason for Consult: dizziness on/off chest pain, new T wave inversions in the 1 avl and lateral leads Call Completed: Yes 08/18/18 07:44 Consult to Neurology [CONS] Stat Consulting Provider: Neurology [facility] Reason for Consult: dizziness ? posterior fossa stroke Call Completed: No 08/19/18 10:39 Consult to ENT [CONS] Routine Consulting Provider: ENT [place] Reason for Consult: vertigo Time Notified: 10:39 Call Completed: Yes 08/19/18 13:58 Consult to Physical Therapy [CONS] Routine Comment: Evaluate, develop and implement POC Reason for Consult: dizziness Does patient have active BEDREST order?: No Is patient medically & hemodynamically stable?: Yes Patient assessed for mobility or mobilized this visit?: No 08/19/18 14:29 OT [Consult to Occupational Therapy] [CONS] Routine Comment: Evaluate, develop and implement POC Reason for Consult: Evaluation Does patient have active BEDREST order?: No Is patient medically & hemodynamically stable?: Yes Discharging clinician: Cynthia Levy Anticipated date of discharge: 08/19/18 - Constitutional Vitals: Temp Pulse Resp BP Pulse Ox 98.3 F 82 16 135/87 95 08/19/18 10:50 08/19/18 10:50 08/19/18 10:50 08/19/18 10:50 08/19/18 10:50 General appearance: Present: A&O X 3 Exam: General: Patient is alert, oriented, no acute distress, obese, very dismissive Head: atraumatic, normocephalic, Eye: normal appearance, PERRL, no scleral icterus, no conjunctival injection no nystagmus ENT: mucous membranes moist, normal external ear exam Neck: normal inspection, trachea midline, full ROM, no carotid bruits Chest: Well-healed CABG scar, normal inspection, symmetric chest rise Respiratory: Good respiratory effort. Bilateral breath sounds are clear without wheezing, crackles, or rhonchi. Cardiovascular: Regular rate and rhythm. s1 and s2 No clicks, rubs, gallops, or murmors. Abdomen: Bowel sounds present normoactive x-4 quadrants. Abdomen is soft, nondistended. no Epigastric tenderness. No guarding or rebound. No organomegaly noted, obese musculoskeletal: Spontaneously moving all extremities. no edema, no calf tenderness Skin: warm, dry, intact. Neuro: Alert and oriented x4. Sensation light touch intact. Cranial nerves 2- 12 is intact. Not aphasic, rapid hand movements intact, [id number] intact, nybk-[id number] is intact Psych: Patient's affect is normal - Head Head exam: Present: atraumatic, normocephalic - Eye Eye exam: Present: PERRL, conjuntiva pink, sclera anicteric Pupils: Present: PERRL - Neck Neck exam general surgery: Present: supple, trachea midline. Absent: lymphadenopathy - Respiratory Respiratory exam: Present: CTAB. Absent: accessory muscle use, rales, rhonchi, wheezes - Cardiovascular Cardiovascular exam: Present: RRR, +S1, +S2. Absent: diastolic murmur, gallop, rubs, systolic murmur - GI/Abdominal GI/Abdominal exam: Present: normal bowel sounds, soft, no peritoneal signs. Absent: distended, tenderness - Extremities Exam Extremities exam: Present: warm, radial pulses palpable and symmetrical. Absent: calf tenderness, cyanotic, pedal edema - Neurological Exam Neurological exam: Present: CN II-XII intact, oriented X3, no focal deficits. Absent: pronater drift, facial droop, speech deficit - Skin Skin exam: Present: dry, intact - Patient Status Disposition: Home, Self-Care Condition: Good - Discharge Instructions Instructions: Chest Pain (DC) Follow Up With: Zack Brown DO [Primary Care Provider] - 08/26/18 2:15 pm Benji Mack DO [Partnered Physician] - - Diet and Activity Activity: increase activity as tolerated Diet: advance to your usual diet
== END 2018-08-19 15:51 | disposition home or self-care (01) ==
LOC: EMEROOARM 05:35 → 3BNU 05:35
PROVIDERS: ADMIT Internal Medicine; ATTEND Internal Medicine